=== PATIENT | male | born 1955 | race Caucasian/White ===

== ENCOUNTER 2018-10-28 08:39 | Day surgery (SDC) | payer OTHER ==
[~2018-10-28 08:39] MED LIST: ACET325 PO; ACETAMINOPHEN500 MG PO; ALBU90OI; ALBU90OI INH; ALEVE220 MG PO; ASPI81CH PO; Ambien10 MG PO; BELSOMRA15 MG PO; BUPR100 PO; Benztropine Mesy1 MG; CIPR500 PO; CITA20 PO; CLON.5; CLON1 PO; CLON2 PO; CYCL10; DIVA500EC; DIVA500ER; DOCU100 PO; ESCI10; ESCI20; ESCI20 PO; EYE; FURO40; FURO40 PO; GABA100 PO; GABA300 PO; GABA400 PO; GEMF600; GEMF600 PO; HARVONI 90-4001 EACH; HYDACE10B; HYDACE10B PO; Istalol2.5 ML; Istalol2.5 ML XX; LAMO100 PO; LEVCAR2510 PO; LISI5 PO; LORA.5 PO; LOVA20; LOVA40 PO; Lexapro 2020 MG PO; Loxapine25 MG; NAPR220; NAPR500; OLAN10; OLAN10 PO; OLAN20 MM; OLAN20 PO; OMEP20ER; OPTLUBOPOB BOTHEYES; POTCHL20ER; POTCHL20ER PO; PRAM.5 PO; Percocet 5-3251 EACH PO; Prilosec Otc20 MG PO; QUET25 PO; ROXICODONE5 MG PO; TIMO.5OPS; TIMO.5OPSO BOTHEYES; TIMO.5OPSO OU; TRAV.004OP BOTHEYES; TRAZ50; TRAZ50 PO; TRICOR; TYLENOL PO; Travatan Z5 ML BOTHEYES; Travatan Z5 ML OP; Ultram50 MG PO; VARE1 PO; ZIPR20 PO; ZOLP10 PO; ZOLP5 PO; Zyprexa10 MG PO
== END 2018-10-28 11:10 | disposition home or self-care (01) ==
LOC: ORSCSDS 08:39
PROVIDERS: Internal Medicine Gastroenterology
PROC: 0DB98ZX Excision of Duodenum, Via Natural or Artificial Opening Endoscopic, Diagnostic (ICD-10-PCS; principal; 2018-10-28 10:00)
DX: K74.60 Unspecified cirrhosis of liver (principal); K29.80 Duodenitis without bleeding; K44.9 Diaphragmatic hernia without obstruction or gangrene; F31.9 Bipolar disorder, unspecified; K20.9 Esophagitis, unspecified; B19.20 Unspecified viral hepatitis C without hepatic coma; E11.9 Type 2 diabetes mellitus without complications; I10 Essential (primary) hypertension; E78.5 Hyperlipidemia, unspecified; J44.9 Chronic obstructive pulmonary disease, unspecified; F41.9 Anxiety disorder, unspecified; G47.30 Sleep apnea, unspecified; G47.33 Obstructive sleep apnea (adult) (pediatric); Z87.891 Personal history of nicotine dependence
CPT/HCPCS: 82947; 88305; J2250; J7120

== ENCOUNTER → 2019-11-29 | Outpatient (CLI) | payer OTHER ==
[2019-12-01 15:16] LABS: Adenovirus F 40/41 Not Detected (NOT DETECT); Astrovirus Not Detected (NOT DETECT); Campylobacter Sp Not Detected (NOT DETECT); Cryptosporidium Not Detected (NOT DETECT); Cyclospora Cayetanensis Not Detected (NOT DETECT); E. Coli O157 Not Detected (NOT DETECT); Entamoeba Histolytica Not Detected (NOT DETECT); Enteroaggregative E. coli-EAEC Not Detected (NOT DETECT); Enteropathogenic E. coli-EPEC Not Detected (NOT DETECT); Enterotoxigenic E. coli-ETEC Not Detected (NOT DETECT); Giardia Lamblia Not Detected (NOT DETECT); Norovirus GI/GII Not Detected (NOT DETECT); Plesiomonas Shigelloides Not Detected (NOT DETECT); Rotavirus A Not Detected (NOT DETECT); Salmonella Sp Not Detected (NOT DETECT); Sapovirus Not Detected (NOT DETECT); Shiga Toxin-prod E. coli-STEC Not Detected (NOT DETECT); Shigella/Enteroin E. coli-EIEC Not Detected (NOT DETECT); Vibrio Cholerae Not Detected (NOT DETECT); Vibrio Sp Not Detected (NOT DETECT); Yersinia Enterocolitica Not Detected (NOT DETECT)
== END | disposition home or self-care (01) ==
LOC: LAB SHORT 16:15 → LAB 16:15
PROVIDERS: Physician Assistant
DX: R19.7 Diarrhea, unspecified (principal)
CPT/HCPCS: 0097U

== ENCOUNTER 2020-03-05 10:01 | Observation (INO) | payer OTHER ==
[~2020-03-05] VITALS: Ht 167.6 cm; Wt 95.2 kg
[~2020-03-05 10:01] MED LIST changes: +ASPI325EC PO; -ASPI81CH PO
[2020-03-05 12:06] LABS: BASOPHILS ABSOLUTE AUTO 0.08 K/mm3 (0.00-0.23); BASOPHILS PERCENT AUTO 1 % (0-2); EOSINOPHILS ABSOLUTE AUTO 0.27 K/mm3 (0.00-0.68); EOSINOPHILS PERCENT AUTO 2 % (0-6); Hematocrit 47.9 % (37.0-53.0); Hemoglobin 16.3 g/dL (13.5-17.5); IMMATURE GRAN ABSOLUTE AUTO 0.05 K/mm3 (0.00-0.10); IMMATURE GRAN PERCENT AUTO 0 % (0-1); LYMPHOCYTES ABSOLUTE AUTO 2.44 K/mm3 (0.84-5.20); LYMPHOCYTES PERCENT AUTO 20 % (21-46); MONOCYTES ABSOLUTE AUTO 0.63 K/mm3 (0.16-1.47); MONOCYTES PERCENT AUTO 5 % (4-13); Mean Corpuscular HGB 30.4 pg (26.0-34.0); Mean Corpuscular Volume 89 fL (80-100); Mean Platelet Volume 11.2 fL (9.1-12.4); NEUTROPHILS ABSOLUTE AUTO 8.79 K/mm3 (1.96-9.15); NEUTROPHILS PERCENT AUTO 72 % (41-73); Platelet Count 194 K/mm3 (150-400); RDW Coefficient Variation 13.1 % (11.7-14.2); RDW Standard Deviation 42.4 fL (35.1-46.3); Red Blood Cell Count 5.37 M/mm3 (4.30-5.90); White Blood Cell Count 12.26 K/mm3 (4.00-11.30)
[2020-03-05 12:27] LABS: Alanine Aminotransfer (ALT/SGP 43 U/L (12-78); Albumin, Blood 4.7 g/dL (3.4-5.0); Albumin/Globulin Ratio 1.5 (0.8-1.8); Alk Phos 70 U/L (50-136); Anion Gap 10 mmol/L (6-16); Aspartate Aminotrans (AST/SGOT 33 U/L (12-37); Bilirubin, Total 1.3 mg/dL (0.1-1.0); Blood Urea Nitrogen 11 mg/dL (8-24); Bun/Creatinine Ratio 10.4 (12.0-20.0); CO2, Blood 23 mmol/L (21-32); CPK Creatine Kinase 209 U/L (39-308); Calcium, Blood 9.6 mg/dL (8.5-10.1); Chloride, Blood 104 mmol/L (98-108); Creatine Kinase MB 4.7 ng/mL (0.0-3.6); Creatine Kinase MB Index 2.2 (0.0-4.0); Creatinine, Blood 1.06 mg/dL (0.60-1.20); Globulin, Blood 3.2 g/dL (2.2-4.0); Glomerular Filtration Rate >60 (60-); Glucose, Blood 87 mg/dL (70-99); Potassium, Blood 4.2 mmol/L (3.5-5.5); Sodium, Blood 137 mmol/L (136-145); Total Protein, Blood 7.9 g/dL (6.4-8.2)
[2020-03-05] MEDS ORDERED: Glucophage1000 MG PO (13:27)
[2020-03-05] MEDS ORDERED: TRAZ100 PO (13:27)
[2020-03-05] MEDS ORDERED: LISI5 PO (13:27)
[2020-03-05] MEDS ORDERED: OMEP20ER PO (13:28)
[2020-03-05] MEDS ORDERED: BUPROPION XL150 M1 PO (13:28)
[2020-03-05] MEDS ORDERED: Loratadine10 MG PO (13:28)
--- NOTE | 2020-03-05 18:38 | NUR ---
LEFT MESSAGE ON 'S VOICE MAIL THAT PATIENT CHANGED TO MODERATE RISKAS SCORED HIGHER ON SI ASSESSMENT. TALKED TO JOSE , WHO IS COVERING FOR [employer], AND LET HIM KNOW ALSO.
--- NOTE | 2020-03-05 19:10 | NUR ---
ARRIVES ABOUT 1730. ALERT. ORIENTED. ROOM CLEARED OF ALL HARMFUL ITEMS. TALKED TO WHO WILL BE IN TOMORROW TO SEE. UNLABORED RESPIRATIONS. STS WILL NOT HURT HIMSELF AT THIS TIME. REPORT TO NIGHT RN
--- NOTE | 2020-03-05 21:40 | NUR ---
alert forgetful PT admitted prior to dinner with suicide ideation continues on remote camera monitoring verified with [employer] monitor who verifies PT has been busy in room but coopertive. PT says he has short term memory deficit since . CO rt arm pain relieved by one 5/325 mg tab norco. Appetite good room air voids and ambulates with steady gait. PT says last suicide ideation was 4 years ago. Ex [employer], divoerced with 3 adult children, 3 Grandchildren. Edentulous, ate 100% mech soft diet with ground meat. Says he had planned to hang himself in the [place] but denies active plan to harm self here. Lives alone outside [place] has neighbor Caregiver Charlotte who he shared plan with. Moderate risk for self harm. Continue with plan and close monitoring.
[2020-03-05] MEDS ORDERED: Kenalog-40 m40 MG/ML IJ (22:52)
--- NOTE | 2020-03-06 04:54 | NUR ---
DR Hayden updated on PT's reported severe dystonic reaction with benadryl use and med was dc without ever being given. PT awake most of night. Cooperative, alert but has reported lifelong short term memory deficit. No attempts at self harm, PT continues on moderate sucide precautions with remote camera monitoring. Good appetite. States chronic diarrhea. Foul smelling BM x 1 using bedside commode. PT has restless limb disorder and he sates reaction or no good effect from attempts to treat in past. PT states he used to smoke 9 packs of cigarettes daily quit 4.5 years ago. PT has caregiver Charlotte 5 days a week 3.5 hours daily. He is able to ambulate safely in room. states he has adequate resources from Medicare & medicaid for medical just recently establishing care with new [facility] provider in [place]. Medical record indicates PT had kenalog injection for pain PT has no memory or it. Mild anxiety related to insommnia & restless limb. PT notified exwife he is hospitalized she asked him to get help. Psych eval pending PT spent 6 months in mental institute for severe depression in remote past. 1 attempt with pills to commit suicide 30 years ago, 4 years ago tried to hang self. Asking for help with medical issues, denies attempting to harm self in last 4 years but had planned to hang self with belt on Wednesday.
[2020-03-06 04:56] LABS: BASOPHILS ABSOLUTE AUTO 0.09 K/mm3 (0.00-0.23); BASOPHILS PERCENT AUTO 1 % (0-2); EOSINOPHILS ABSOLUTE AUTO 0.74 K/mm3 (0.00-0.68); EOSINOPHILS PERCENT AUTO 6 % (0-6); Hematocrit 46.5 % (37.0-53.0); Hemoglobin 15.3 g/dL (13.5-17.5); IMMATURE GRAN ABSOLUTE AUTO 0.07 K/mm3 (0.00-0.10); IMMATURE GRAN PERCENT AUTO 1 % (0-1); LYMPHOCYTES PERCENT AUTO 24 % (21-46); MONOCYTES ABSOLUTE AUTO 0.88 K/mm3 (0.16-1.47); MONOCYTES PERCENT AUTO 7 % (4-13); Mean Corpuscular HGB 29.4 pg (26.0-34.0); Mean Corpuscular HGB Conc 32.9 g/dL (31.5-36.5); Mean Corpuscular Volume 89 fL (80-100); Mean Platelet Volume 11.3 fL (9.1-12.4); NEUTROPHILS ABSOLUTE AUTO 7.82 K/mm3 (1.96-9.15); NEUTROPHILS PERCENT AUTO 62 % (41-73); Platelet Count 201 K/mm3 (150-400); RDW Coefficient Variation 12.8 % (11.7-14.2); RDW Standard Deviation 42.1 fL (35.1-46.3)
[2020-03-06 05:25] LABS: Anion Gap 8 mmol/L (6-16); Blood Urea Nitrogen 17 mg/dL (8-24); Bun/Creatinine Ratio 15.3 (12.0-20.0); CO2, Blood 26 mmol/L (21-32); Calcium, Blood 9.5 mg/dL (8.5-10.1); Chloride, Blood 101 mmol/L (98-108); Creatinine, Blood 1.11 mg/dL (0.60-1.20); Glomerular Filtration Rate >60 (60-); Glucose, Blood 94 mg/dL (70-99); Potassium, Blood 4.3 mmol/L (3.5-5.5); Sodium, Blood 135 mmol/L (136-145)
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
--- NOTE | 2020-03-06 17:08 | NUR ---
PT IS A/OX3, HAS BEEN MOSTLY COOPERATIVE TODAY, THIS AM THE PT STATED THAT IF HE WAS DISCHARGED HE WOULD DEFINATLEY GO HOME AND KILL HIMSELF, HE REPORTED THAT HE HED A PLAN AND WENT INTO DETAILS ON DIFFERENT PLANS THAT HE HAD AND APPARENTLY HAD TRIED IN THE PAST, HE STATED THAT IF HE COULD NOT GET THE JERKY MOVEMENTS HE IS HAVING STOPPED THEN HE MIGHT WELL NOT LIVE ANYMORE, THE PT TODAY DEMONSTRATED SOME VERY ODD BEHAVIORS AT TIMES, SUCH STUFFING KLENEX INTO HIS EARS, ASKING THAT PEOPLE WHISPER WHEN COMING INTO HIS ROOM, SAYING THAT HE NEEDED TO PUT SOME EYEDROPS IN HIS EYES BEFORE THEY POPPED OUT OF HIS HEAD DUE TO HIS DRY ITCHY EYES AND PRESSURE IN THE BACK OF HIS NECK AND EARS, HE DEMANDED AND BECAME VERY ANGRY THIS AFTERNOON WANTING SOMETHING TO TAKE NOTES WITH BECAUSE HIS MEMORY WAS SHORT TERM, DR. VARMA AGREED TO LET THE PT HAVE HIS PHONE BACK REQUESTED SO THAT HE COULD TAKE NOTES ON THAT, THEN HE HACKED AND COUGHED LOUDLY IN HIS DOORWAY SAYING THAT A PILL WAS STUCK IN HIS THROAT APPLESAUCE AND THEN CRACKERS WERE GIVEN TO HIM HE DEMANDED SHOVEING THEM INTO HIS MOUTH, THE PT WAS ALSO SEEN ON THE CAMERA DISPLAYING SOME ODD BEHAVIORS, PT APPEARS TO BE BREATHING EASILY ON RA, CALL LIGHT IN REACH, WILL CONTINUE TO MONITOR AND ASSESS FOR CHANGES
--- NOTE | 2020-03-07 02:58 | NUR ---
PT had psych eval and saw other MD. Hopeful he can achieve rest & stop myoclonis activity with MD & Psych help. reviewed safety plan & veriified remote camera monitoring with [employer]. Denies current plan cooperative
[2020-03-07 06:05] LABS: Anion Gap 5 mmol/L (6-16); CO2, Blood 30 mmol/L (21-32); Calcium, Blood 9.3 mg/dL (8.5-10.1); Chloride, Blood 102 mmol/L (98-108); Creatinine, Blood 1.04 mg/dL (0.60-1.20); Glomerular Filtration Rate >60 (60-); Potassium, Blood 4.1 mmol/L (3.5-5.5); Sodium, Blood 137 mmol/L (136-145)
[2020-03-07 06:15] LABS: Blood Urea Nitrogen 16 mg/dL (8-24); Bun/Creatinine Ratio 15.4 (12.0-20.0); Glucose, Blood 86 mg/dL (70-99)
--- NOTE | 2020-03-07 06:30 | NUR ---
64 year old White Male admitted with Suicidal ideation continued to be cooperative without attempts to self harm. PT had remote camera monitoringwith no calls of abnormal behavior. PT is disabled & has caregiver 3.5 hours daily 5 days week. Reports good support & finacial resources to cope. He seems hopeful he will be able to get better control of his restless limbs & insommnia. He was started on requip & he took HS meds and rested for about a hour then complained of lip smacking dry moith. Liquids & observation as well as support were helpful to relieve. He had minimal to no restless limbs for multiple hours during night and slept in bedside recliner with no further requests for pain meds after oxycodone 5 mg given x 1 at HS.
--- NOTE | 2020-03-07 09:25 | NUR ---
SI PT THIS AM STATES THAT HE FEELS SAFE HERE AT THE HOSPITAL, HOWEVER IF HE WAS RELEASED HE FEELS THAT HE MIGHT CONTINUE WITH HIS PLAN TO KILL HIMSELF AT THIS TIME
--- NOTE | 2020-03-07 17:06 | NUR ---
PT IS A/OX3, COOPERATIVE, THE PT IS UP IND IN HIS ROOM , TODAY THE PT REPORTED THAT HE FELT SAFE WHILE HERE IN THE HOSPITAL AND HAD NO PLAN TO HURT HIMSELF LONG HE WAS HERE, THE PT DID HOWEVER, SAY THAT HE WOULD HURT HIMESELF IF HIS PROBLEM WAS NOT SOLVED BEFORE DC, BECAUSE HE COULD NO LONGER LIVE WITH HIS MOTION DISORDER, THE PTS BEHAVIOR TODAY WAS MORE APPROPRIATE COMPARED TO YESTERDAY, AND THE PT DID REPORT THAT HE FELT THE MEDICATION CHANGE WAS WORKING A LITTLE, PT APPEARS TO BE BREATHING EASILY ON RA, CALL LIGHT IN REACH, WILL CONTINUE TO MONITOR AND ASSESS FOR CHANGES
--- NOTE | 2020-03-07 21:47 | NUR ---
SUICIDE PRECAUTIONS MODERATE TO HIGH AT THE TIME OF MY SUICIDE REASSESSMENT PT REPORTS SUICIDE IDEATION AND ANSWERED YES TO MOST QUESTIONS ON SCREENING, FLAGGING HIM FROM MODERATE TO HIGH. EXTRACTOR PLANT OPERATOR VERONICA GOLD NOTIFIED. LORAINE COHEN NP ALSO NOTIFIED. PT NOW HIGH RISK WITH 1:1 SITTER. ROOM IS FREE AND CLEAR OF HARMFUL OBJECTS.
--- NOTE | 2020-03-08 04:42 | NUR ---
SHIFT SUMMARY PT REPORTS SI THIS SHIFT, PT STATES THAT HE HAS AN ACTIVE PLAN. POSITIVE SCREEN WHICH MARKED PT FROM MODERATE TO HIGH. PROVIDER WAS NOTIFIED AND APPROPRIATE MEASURES WERE PUT IN PLACE. PT HAS A 1:1 SITTER AND ROOM HAS BEEN KEPT FREE FROM HARM. PT HAS RESTED OFF AND ON THIS SHIFT. PT CONTINUES TO HAVE MYCLONUS T/O THE NIGHT. SEEMS TO INTENSIFY WHEN PT BECOMES ANXIOUS. PT HAS FLIGHT OF IDEAS WITH PRESSURED SPEECH. PT MEDICATED FOR INTERMITTENT BACK PAIN WITH ROXICODONE WITH EFFECT. INTERMITTENT EPISODE OF NAUSEA THIS SHIFT PO ZOFRAN GIVEN. NO OTHER CHANGES TO REPORT. BED IN LOWEST POSITION, CALL LIGHT WITHIN REACH. WILL CONTINUE TO MONITOR AND REPORT TO ONCOMING RN.
--- NOTE | 2020-03-08 08:33 | NUR ---
STATES HE HAS SAME PLAN FOR YEARS
--- NOTE | 2020-03-08 10:04 | NUR ---
cn spoke to dr frazier, pt has stated that he has a plan but that it is not for here in the hospital, both stated options require him traveling some distance to implement, when left alone with observer very few observable ticks, started twitching as soon as cn entered room
--- NOTE | 2020-03-08 16:42 | NUR ---
level of suicide ideation reduced to moderate, pt states he does not plan on committing suicide while in the hospital, sitter allowed to return to monitor rm, pt missing them, dr in to visit both [facility] and [facility], medications modified and tests ordered in attempt to provide appropriate care for pt, will continue to monitor and treat until share bsr with staff and pt
[2020-03-08 17:42] LABS: Percent Saturation 12.9 % (20.0-50.0)
--- NOTE | 2020-03-08 19:43 | NUR ---
VERIFIED VIDEO MONITORING CALLED SCU HAND BOX COVERER. VERIFIED VIDEO MONITORING IS IN PLACE FOR THIS PT
--- NOTE | 2020-03-08 21:33 | NUR ---
PT STATUS HE SAYS HE NO LONGER FEELS SUICIDAL BECAUSE HE IS GETTING THE HELP HE NEEDS. HE SAYS THAT HE WILL COMMIT SUICIDE IF HIS MUSCLE SPASMS RETURN. HE STATES HE HAS 2 PLANS TO COMMIT SUICIDE AT ALL TIMES THOUGH.
--- NOTE | 2020-03-09 04:25 | NUR ---
SHIFT SUMMARY ADMITTED FOR SI. FULL CODE. HE IS BIPOLAR. HE STATES HE HAS RESTLESS LEGS AND ITS MORE THAN HE CAN BEAR. HE STATES IF THE SYMPTOMS RETURN AFTER HE GOES HOME, HE WILL COMMIT SUICIDE. HE STATES HE HAS TWO PLANS TO DO THIS. HE IS NOT CONSIDERING THIS NOW HE SAYS HIS LEGS HAVE IMPROVED. HE WAS CHANGED FROM A HIGH RISK TO A MODERATE RISK ON A PREVIOUS SHIFT. THE HIGH RISK INTERVENTION STILL NEEDS DC'D - I WILL INFORM DAY NURSE. VIDEO MONITORING IS IN PLACE. [facility] SOFT DIET, RA, INDEPENDENT IN ROOM. WHEN HE DC'S, HE MAY NEED OUTPT NEUROLOGY AND PSYCH REFERALS. HE WAS COOPERATIVE WITH CARE THIS SHIFT
--- NOTE | 2020-03-09 08:22 | NUR ---
SINCE THE SPAZAMS ARE IN CONTROL DOES NOT WANT TO KILL SELF
--- NOTE | 2020-03-09 14:51 | NUR ---
PATIENT ON THE PHONE WITH A FAMILY MEMBER. HE IS NOTED TO BE EMOTIONAL AND IN A BACK AND FORTH CONVERSATION ABOUT HOW HIS CARE IS WELL HERE AND HOW SOMEONE IS UNDERMINING HIS TREATMENT PLAN AND HAT HE HAD JUST GOTTEN BETTER. HE DOES STATE HE DOES NOT FEEL LIKE HE CAN GO HOME SAFELY AT THIS POINT, AND THE NURSES ARE HELPING ALTHOUGH HE DOES FEEL TRAPPED. PATIENT DOES GET MILDLY IRRITABLE BUT IS CALMING DOWN.
--- NOTE | 2020-03-09 16:58 | NUR ---
called nurse in to express concern that the medication/treatment plan he had agreed to would not work, nurse spent some time calming him down, reiterating what the dr had said during her conversation with the pt explaining the medication regiment she thought would be best for him, finally pt agreed that things were still improving and that the dr was responding to his requests and concerns, informed dr of conversation and she allowed for a one time dose of valium, pt has been working on word puzzles eversince to take his mind off the pain in his wrist
--- NOTE | 2020-03-09 18:20 | NUR ---
still concerned that medication will not work, but states he is a zero risk for suicide, very emotional, medicated as prescribed by dr to reduce anxiety, pt resting quietly in room working on puzzles no more pacing ruelas, will continue to monitor and treat until share bsr with noc nurse and pt
--- NOTE | 2020-03-09 19:17 | NUR ---
VERIFIED VIDEO MONITORING CALLED VIDEO TEASEL GIG OPERATOR NARINDER TO VERIFY VIDEO MONITORING IS IN PLACE.
--- NOTE | 2020-03-10 04:12 | NUR ---
SHIFT SUMMARY ADMITTED FOR SI. FULL CODE. MEDICATION REGIMEN CHANGED TODAY IN HOPES OF EFFECTIVE, BUT SAFE, MANAGEMENT OF THIS PT'S SYMPTOMS. VIDEO MONITORING IS IN PLACE. HE DENIES SI WHILE HOSPITALIZED, BUT REMINDS ME THAT HE WILL NOT TOLERATE THE RETURN OF HIS SEVERE SYMPTOMS AFTER DC- AND THAT HE MAY BECOME SUICIDAL IF THE SYMPTOMS RETURN. HE DID COME OUT OF HIS ROOM AND WALK IN THE ALEX FOR EXERCIZE WITH MY SUPERVISION, THIS IMPROVED HIS MOOD GREATLY - FOLLOWING WHICH HE RETURNED TO HIS BED TO SLEEP SOUNDLY. RA, INDEPENDENT W/FWW, [facility] SOFT/GRND MEAT DIET. HE LIVES ALONE. HX: BIPOLAR.
--- NOTE | 2020-03-10 13:18 | NUR ---
contacted dr payan/josue, she said she was on her way up and would assess the pt when she got here as long as he could wait, pt agreed to continue waiting
--- NOTE | 2020-03-10 15:08 | NUR ---
SPACED MEDICATIONS SO TOOK ONE ON AN EMPTY STOMACH AND THE NEW MEDICATION AFTER EATING A SANDWICH, WILL MONITOR TO SEE WHAT EFFECTS MEDICATIONS HAVE ON CONDITION, ZERO SUICIDE, ACHES, INFREQUENT SPASAMS, STILL CONCERNED R/GOING HOME AND HAVING LEG ISSUES
--- NOTE | 2020-03-10 18:25 | NUR ---
trying new mediation for pain control, states it appears to be working, needs constent encouragement and reminders of positive things happening, requested hand be wrapped to minimize pain to thumb, states it is working and that it feels better, frequent checks to verify circulation in hand/fingers, will continue to monitor and check until share bsr with noc nurse and pt
--- NOTE | 2020-03-10 20:23 | NUR ---
PT continues on remote camera monitor & moderate suicide precautions. He is alert & verbalized he is hoping to go home when he can sleep & myoclonis is controlled. Calm & cooperative. Camera monitoring verified with
--- NOTE | 2020-03-11 05:24 | NUR ---
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 He had greatly reduced muscle spasms , decreased limb movement. Medicated with tylenol for co posterior headache with helpful effect. Cooperative with moderate suicide precautions & remote camera monitoring. Appetite good VSS. Pt says he wants to go home Wed with caregiver assist after he see's if current rx are controlling restless limb movements & insommnia.
--- NOTE | 2020-03-11 17:50 | NUR ---
SUMMARY PT IS A/O X4. GENERALLY PLEASANT HOWEVER STATES CONTINUING DEPRESSION, HX BIPOLAR D/O. HE IS ON SUICIDE WATCH w [employer] MX THIS AM. ON ASSESSMENT STATE NO SI @ THIS TIME STATE HE HAS NO INTENT WHILE IN HOSP, FEELS SAFE. STATE STRESSORS R/T HOME CAREGIVER NO LONGER ABLE TO HELP HIM. DR FIERRO IN TO SEE HIM THIS AFTERNOON, STATE PT NO LONGER SUICIDAL, D/C SUICIDE PRECAUTIONS, ACCOUNTS PAYABLE BOOKKEEPER NOTIFIED. DR FIERRO STATE OK FOR D/C HOME w CAREGIVER, DR CHOWDHURY WAS GOING TO D/C HIM TODAY HOWEVER PT STATE IF HE IS D/C W/O PROPER ASSISTANCE @ HOME HE WILL ATTEMPT SUICIDE. CARE MANAGERS BECOME INVOLVED w SITUATION, D/C ON HOLD FOR NOW UNTIL THEY CAN ARRANGE TO PT SATISFACTION FOR SAFETY. PT REASSESSED FOR SI, HE REAFFIRMS NO SI WHILE IN HOSP, ACCOUNTS PAYABLE BOOKKEEPER NOTIFIED, SUICIDAL PRECAUTIONS D/C/ORDER. PT HAS BEEN UP AMBULATING IN ALEX, GAIT STEADY. HE STATE CONTINUING ISSUE W R THUMB, REQUESTS GAUZE WRAP FOR STABILITY, DR CHOWDHURY ORDER TO TRY SPLINT HOWEVER PT DECLINED D/T POOR FIT. VSS.
--- NOTE | 2020-03-11 20:02 | NUR ---
Updated admin times for Neurontin 300 mg Q 8 hours as PT recieving valium 5 mg po at HS & he requests not to be woken at 0000 to take rx. Has severe insommnia & he requests HS meds togeather. He has suicide precautions DC as well as remote camera monitor dc. He verbalized he feels unsafe to dc home & asks for assessment for assisted living or appropriate other dc plan versus home alone.
--- NOTE | 2020-03-12 05:53 | NUR ---
PT continues cooperative but he has been DC from suicide precautions by Dr Mcgrath & he cezar AGUILLON said he could go home but he refused to be dc due to feeling unsafe alone with part-time caregiver. PT complaints of continued myoclonus are at time exaggerated but he does say he will not dc home until he feels he can get adequate rest due to extreme insommnia issues & until restless limb disorder is controlled. Continues with hyper low pitched speech often difficult to understand with some flight of ideas voiced. PT used platform walker to ambulate in halls with steady gait. RT thumb splint replaced with helpful effect to decrease pain. Medicated x 1 with tylenol for headach pain. often sleeping soundly snores. Working with PT OT with progress.
--- NOTE | 2020-03-12 17:51 | NUR ---
SUMMARY PT IS A/O X4, AFFECT PLEASANT, HE STATE NO SI @ THIS TIME, PRECATIONS D/C YESTERDAY. STATE MORE HOPEFUL TODAY, STATE DR CHOWDHURY & CARE MANAGERS ASSISTING HIM WITH APPROP FUTURE LIVING ARRANGEMENTS. HE HAS HAD GOOD RELIEF FROM MUSCLE SPAASMS TODAY. HE C/O NECK/UPPER BACK PAIN & H/A, HAVE GIVEN TYLENOL HOWEVER STATES INEFFECTIVE. DR CHOWDHURY ORDER OXYCODONE 5MG BID. HE HAD SHOWER TODAY, HAS AMBULATED IN AELX, GAIT STEADY. VSS.
[2020-03-13 05:23] LABS: BASOPHILS ABSOLUTE AUTO 0.08 K/mm3 (0.00-0.23); BASOPHILS PERCENT AUTO 1 % (0-2); EOSINOPHILS PERCENT AUTO 7 % (0-6); Hematocrit 45.6 % (37.0-53.0); IMMATURE GRAN ABSOLUTE AUTO 0.05 K/mm3 (0.00-0.10); IMMATURE GRAN PERCENT AUTO 1 % (0-1); LYMPHOCYTES ABSOLUTE AUTO 2.85 K/mm3 (0.84-5.20); LYMPHOCYTES PERCENT AUTO 28 % (21-46); MONOCYTES ABSOLUTE AUTO 0.69 K/mm3 (0.16-1.47); MONOCYTES PERCENT AUTO 7 % (4-13); Mean Corpuscular HGB Conc 32.9 g/dL (31.5-36.5); Mean Corpuscular Volume 91 fL (80-100); Mean Platelet Volume 11.7 fL (9.1-12.4); NEUTROPHILS ABSOLUTE AUTO 5.72 K/mm3 (1.96-9.15); NEUTROPHILS PERCENT AUTO 57 % (41-73); Platelet Count 182 K/mm3 (150-400); RDW Coefficient Variation 13.2 % (11.7-14.2); RDW Standard Deviation 44.7 fL (35.1-46.3); White Blood Cell Count 10.09 K/mm3 (4.00-11.30)
[2020-03-13 05:36] LABS: Anion Gap 5 mmol/L (6-16); Blood Urea Nitrogen 22 mg/dL (8-24); CO2, Blood 30 mmol/L (21-32); Calcium, Blood 8.9 mg/dL (8.5-10.1); Chloride, Blood 105 mmol/L (98-108); Creatinine, Blood 1.05 mg/dL (0.60-1.20); Glomerular Filtration Rate >60 (60-); Glucose, Blood 101 mg/dL (70-99); Magnesium, Blood 2.2 mg/dL (1.6-2.4); Potassium, Blood 4.4 mmol/L (3.5-5.5); Sodium, Blood 140 mmol/L (136-145)
[2020-03-13 05:48] LABS: Percent Saturation 21.6 % (20.0-50.0)
--- NOTE | 2020-03-13 06:35 | NUR ---
SHIFT SUMMARY PT IS A 64 Y/O MALE, ADMITTED FOR SI. PT HAS BEEN TAKEN OFF OF SI PRECAUTIONS PER DR FIERRO. HE DENIED ANY SI OR CURRENT PLANS TO COMMIT SUICIDE WHILE IN THE HOSPITAL. PT DID REPORT MUSCLE SPASMS AT BEDTIME, WHICH APPEARED TO BE RELIEVED WITH THE CURRENT MEDICATION REGIMEN. NO COMPLAINTS OF ACUTE PAIN, NAUSEA OR SOB. VITAL SIGNS STABLE. NO OTHER ACUTE CHANGES IN PT CONDITION NOTED. WILL CONTINUE TO MONITOR AND TREAT PER EMAR UNTIL HAND OFF TO DAY SHIFT RN.
--- NOTE | 2020-03-13 08:02 | NUR ---
MORNING ASSESSMENT: PATIENT REPORTS THAT HE WAS ABLE TO SLEEP WELL LAST NIGHT. PATIENT REPORTS FEELING WELL AND THAT HE WOULD BE READY FOR DISCHARGE SOON IF HE CONTINUES TO FEEL LIKE THIS. REPORTS THAT HE CONTINUES TO HAVE CONTINUOUS PAIN IN RIGHT HAND. DENIES ANY SUICIDAL IDEATION. DENIES SUCIDAL IDEATION UPON DISCHARGE LONG HE CONTINUES TO FEEL THIS GOOD.
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
--- NOTE | 2020-03-13 18:45 | NUR ---
END OF SHIFT SUMMARY: PATIENT CONTINUED TO EXPERIENCE PAIN IN THE RIGHT HAND DURING THE DAY. PATIENT REPORTED THAT THE NEW MEDICATIONS AND THE PAIN MEDICATIONS HELP WITH THE RESTLESS LEG AND PAIN IN THE RIGHT HAND. PATIENT REPORTED THAT THIS DECREASE IN PAIN AND DISCOMFORT HAS RESOLVED HIS SUICIDAL IDEATION. PATIENT DENIED ANY THOUGHTS OF SUICIDE OR SELF-HARM AT THIS TIME. DURING THE SHIFT TODAY, PATIENT REPORTED INTENSE ANGER RELATED TO AN ISSUE WITH THIS BANK CARDS AND INABILITY TO ACCESS HIS ACCOUNT. PATIENT ISOLATED HIMSELF AT THE END OF THE ALEX AND REPORTED THAT HE NEEDED ASSISTANCE WITH THIS ANGER (SEE NURSE'S NOTE). PATIENT REPORTED THAT THE ONE TIME DOSE OF ATIVAN HELPED SOMEWHAT AND THAT THE ONE TIME DOSE OF PO VALIUM (ORDERED AFTER DR. FIERRO VISITED WITH THE PATIENT) HELPED HIM COMPLETELY CALM DOWN. PATIENT INDEPENDENT IN THE ROOM. PATIENT HAS A GOOD APPETITE. PATIENT ABLE TO MAKE HIS NEEDS KNOWN.
--- NOTE | 2020-03-14 05:19 | NUR ---
SHIFT SUMMARY A/O, ABLE TO MAKE NEEDS KNOWN. COOPERATIVE WITH CARE. CALLS AND ANSWERS QUESTIONS APPROPRIATELY. CONTINUES TO C/O PAIN/DISCOMFORT TO R HAND/WRIST; MEDICATED PER EMAR. INDEPENDENT IN HALLWAY /c FWW. APPEARED TO REST OFF AND ON OVERNIGHT. PULSE LOW, UNSURE OF ETIOLOGY; NOTHING IN H&P SHOWS SIGNIFICANT HEART HX. NO OTHER ACUTE CHANGES NOTED OVERNIGHT. BED REMAINS IN LOWEST POSITION. CALL LIGHT AND BELONGINGS WITHIN REACH. WCTM. REPORT TO ONCOMING RN.
--- NOTE | 2020-03-14 16:21 | NUR ---
PT HAD THUMB SPIKA PLACED TODAY. HE IS ALERT AND ORIENTED AND ABLE TO EXPRESS ANY NEEDS. HE IS INDEPENDENT IN THE ROOM. NO ACUTE CHANGES TO PT THIS SHIFT. CALL LIGHT WITHIN REACH.
--- NOTE | 2020-03-15 04:43 | NUR ---
PT A/O X4. INDEPENDENT IN ROOM. DENIES PAIN, NAUSEA, SOB. VSS. NO ACUTE CHANGES.
--- NOTE | 2020-03-15 17:16 | NUR ---
PT CONINUES TO COMPLAIN OF NEW PAINS OR DISORDERS . ADULT VLADIMIR CAME TO INTERVIEW . PT REPORTS FEELING DIZZY YET WALKS AROUND THE ALEX LIKE A CHAMP. HE STATES HIS RIGHT THUMB OR HAND HURTS YET USES IT WITH NO COMPLAINTS. PAIN MEDS GIVEN PER EMAR. NO ACUTE CHANGES.
--- NOTE | 2020-03-16 04:23 | NUR ---
SHIFT SUMMARY PT A&O, PLEASANT & COOPERATIVE W/CARE, C/O MUSCLE SPASMS & R HAND PAIN, MEDICATED PER JAN, PT SLEPT T/O NIGHT, PT IS AMBULATING IN HALLWAY INDEP AT THIS TIME, WILL CONT TO MONITOR UNTIL REPORT GIVEN TO DAY RN.
--- NOTE | 2020-03-16 14:01 | NUR ---
Patient was moved to room 328 from 350. Belongings were bagged and brought with patient including his clothes from the dryer. A/Ox3, pleasant with care and able to make needs known. Denies pain. Up in room and ambulatory in hallway with FWW. Patient's cane was also sent with him. Report given to receiving RYAN Esquivel.
--- NOTE | 2020-03-16 16:03 | NUR ---
SHIFT SUMMARY PATIENT TRANFERED OUT OF SCU TO FLOOR THIS AFTERNOON. PATIENT UP INDEPENDENT IN ROOM. PATIENT MEDICATED X1 FOR PAIN. DENIES NAUSEA AND SHORTNESS OF BREATH. PATIENT RESTING IN RECLINER. CALL LIGHT IN REACH. PATIENT DISCHARGE PENDING PLACEMENT.
--- NOTE | 2020-03-17 05:37 | NUR ---
SHIFT SUMMARY ASSUMED CARE OF PT AT 1900. PT IS A/OX4, BUT HAS FLIGHT OF IDEAS AND BECOMES AGGITATED WHEN HE TALKS ABOUT HIS DOCTORS, PT C/O RESTLESS LEG SYNDROME. HEART SOUNDS REGULAR, LUNG SOUNDS CLEAR, DENIES SOB/CP. PT WONDERED THE HALLS AROUND 0200 BUT RETURNED TO HIS ROOM AND HAS BEEN AWAKE ON AND OFF SINCE. NO ACUTE EVENTS DURING THE NIGHT. PT SLEPT ON AND OFF DURING THE NIGHT. CALL LIGHT IN REACH, BED IN LOWEST POSTION, WILL CONTINUE TO MONITOR UNTIL DAYSHIFT NURSE ARRIVES.
--- NOTE | 2020-03-17 16:09 | NUR ---
SHIFT SUMMARY PATIENT MEDICATED X1 FOR PAIN. DENIES NAUSEA AND SHORTNESS OF BREATH. PATIENT'S RIGHT HAND REWRAPPED IN SPINT AND ANA ROSA BANDAGE TODAY. PATIENT WALKING INDEPENDENTLY IN ALEX. PATIENT PLEASANT AND COOPERATIVE WITH CARE. CALL LIGHT IN REACH.
--- NOTE | 2020-03-18 05:17 | NUR ---
SHIFT SUMMARY ASSUMED CARE OF PT AT 1900. PT IS A/OX4, DENIES N/T IN EXTREMITES BUT HAS RESTLESS LEG SYNDROME. HEART SOUNDS REGULAR, LUNG SOUNDS CLEAR, DENIES SOB AT THIS TIME. PT C/O PAIN IN HIS ARM, BACK, AND LEGS, MEDICATED PER EMAR. PT SLEPT MOST OF THIE NIGHT UNTIL HE AWOKE FOR VITALS AND ASKED FOR PAIN MEDS, MEDICATED PER EMAR. NO ACUTE EVENTS DURING THE NIGHT. PT SLEPT MOST OF THE NIGHT. CALL LIGHT IN REACH, BED IN LOWEST POSITION, WILL CONTINUE TO MONITOR UNTIL DAYSHIFT NURSE ARRIVES.
[2020-03-18] MEDS ORDERED: DIAZ5 PO (13:17)
[2020-03-18] MEDS ORDERED: FERSU300 PO (13:18)
[2020-03-18] MEDS ORDERED: MELO7.5 PO (13:18)
[2020-03-18] MEDS ORDERED: Percocet 5-3251 EACH PO (13:20)
[2020-03-18] MEDS ORDERED: PRAM.125 PO (13:21)
--- NOTE | 2020-03-18 16:07 | NUR ---
1524 PT DISCHARGED HOME VIA [facility]. ESCORTED TO ENTRANCE VIA W/C BY ROVERTO. PT GIVEN NEW FWW BY HERNANDO AND HOME MEDS BY THIS RN PRIOR TO D/C. D/C INSTRUCTIONS REVIEWED WITH PT AND COPY PROVIDED, HARD SCRIPTS FOR CONTROLLED SUBSTANCES WITH PT. NO NEW CHANGES OR CONCERNS.
== END 2020-03-18 15:24 | disposition home health service (06) ==
LOC: ER 10:01 → MEDS 10:02 → ENPENDDIS 03-18 11:34 → MEDS 03-18 14:28
PROVIDERS: Emergency Medicine; Family Medicine; Internal Medicine; ADMIT Student in an Organized Health Care Education/Training Program
DX: F31.9 Bipolar disorder, unspecified (principal); G47.00 Insomnia, unspecified; G25.81 Restless legs syndrome; M65.4 Radial styloid tenosynovitis [de Quervain]; G25.71 Drug induced akathisia; Z91.14 Patient's other noncompliance with medication regimen; Z79.899 Other long term (current) drug therapy; Z79.84 Long term (current) use of oral hypoglycemic drugs; Z87.891 Personal history of nicotine dependence; Z88.8 Allergy status to other drugs, medicaments and biological substances
CPT/HCPCS: 36415; 80048; 80053; 82550; 82553; 82728; 82947; 83540; 83550; 83735; 85025; 96372; 97110; 97116; 97162; 97165; 97530; 97535; 99284; A9270; A9270-GY; G0378; J1650

== ENCOUNTER 2020-10-22 06:59 | Day surgery (SDC) | payer OTHER ==
[~2020-10-22] VITALS: Ht 170.2 cm; Wt 110.8 kg
[~2020-10-22 06:59] MED LIST changes: +BUPROPION XL150 M1 PO; +DIAZ5 PO; +FERSU300 PO; +Glucophage1000 MG PO; +Kenalog-40 m40 MG/ML IJ; +Loratadine10 MG PO; +MELO7.5 PO; +OMEP20ER PO; +PRAM.125 PO; +TRAZ100 PO; +Voltaren100 GM TOP
--- NOTE | 2020-10-22 11:09 | NUR ---
10/22/20 1109 Allyn Pittman PT SATURATIONS 89-90% ON ROOM AIR, PLACED ON OXYGEN AT 2L/MIN VIA NC. PAIN MEDS ADMINISTERED PER ORDERS. OXYGEN SATURATION 94-96% ON 2L OXYGEN. VSS. OXYGEN TURNED OFF, PT MAINTAINING OXYGEN SATURATIONS AT 93-95% ON ROOM AIR.
== END 2020-10-22 11:00 | disposition home or self-care (01) ==
LOC: ORSCSDS 06:59
PROVIDERS: Orthopaedic Surgery
PROC: 0LS70ZZ Reposition Right Hand Tendon, Open Approach (ICD-10-PCS; principal; 2020-10-22 08:45)
PROC: 0LX70ZZ Transfer Right Hand Tendon, Open Approach (ICD-10-PCS; principal; 2020-10-22 08:45)
DX: M18.11 Unilateral primary osteoarthritis of first carpometacarpal joint, right hand (principal); I10 Essential (primary) hypertension; E11.9 Type 2 diabetes mellitus without complications; Z79.84 Long term (current) use of oral hypoglycemic drugs; E66.01 Morbid (severe) obesity due to excess calories; Z68.38 Body mass index [BMI] 38.0-38.9, adult; J44.9 Chronic obstructive pulmonary disease, unspecified; Z87.891 Personal history of nicotine dependence; G47.33 Obstructive sleep apnea (adult) (pediatric); Z79.899 Other long term (current) drug therapy
CPT/HCPCS: 82947; A9270-GY; C1713; J0690; J2250; J2795; J3010; J7120

== ENCOUNTER 2023-09-09 06:17 | Emergency (ER) | payer OTHER ==
[~2023-09-09] VITALS: Ht 170.2 cm; Wt 104.3 kg
[2023-09-09 06:35] LABS: BASOPHILS ABSOLUTE AUTO 0.07 K/mm3 (0.00-0.23); BASOPHILS PERCENT AUTO 1 % (0-2); EOSINOPHILS ABSOLUTE AUTO 0.39 K/mm3 (0.00-0.68); EOSINOPHILS PERCENT AUTO 4 % (0-6); Hematocrit 46.7 % (37.0-53.0); Hemoglobin 16.3 g/dL (13.5-17.5); IMMATURE GRAN ABSOLUTE AUTO 0.08 K/mm3 (0.00-0.10); IMMATURE GRAN PERCENT AUTO 1 % (0-1); LYMPHOCYTES ABSOLUTE AUTO 2.98 K/mm3 (0.84-5.20); LYMPHOCYTES PERCENT AUTO 27 % (21-46); MONOCYTES ABSOLUTE AUTO 0.78 K/mm3 (0.16-1.47); MONOCYTES PERCENT AUTO 7 % (4-13); Mean Corpuscular HGB 31.8 pg (26.0-34.0); Mean Corpuscular HGB Conc 34.9 g/dL (31.5-36.5); Mean Corpuscular Volume 91 fL (80-100); Mean Platelet Volume 10.2 fL (9.1-12.4); NEUTROPHILS ABSOLUTE AUTO 6.61 K/mm3 (1.96-9.15); NEUTROPHILS PERCENT AUTO 61 % (41-73); Platelet Count 158 K/mm3 (150-400); RDW Coefficient Variation 12.6 % (11.7-14.2); RDW Standard Deviation 42.2 fL (35.1-46.3); Red Blood Cell Count 5.12 M/mm3 (4.30-5.90); White Blood Cell Count 10.91 K/mm3 (4.00-11.30)
[2023-09-09 07:00] LABS: Alanine Aminotransfer (ALT/SGP 46 U/L (12-78); Albumin, Blood 4.3 g/dL (3.4-5.0); Albumin/Globulin Ratio 1.5 (0.8-1.8); Alk Phos 64 U/L (50-136); Anion Gap 4 mmol/L (6-16); Aspartate Aminotrans (AST/SGOT 23 U/L (12-37); Blood Urea Nitrogen 23 mg/dL (8-24); Bun/Creatinine Ratio 16.4 (12.0-20.0); CO2, Blood 31 mmol/L (21-32); Calcium, Blood 9.4 mg/dL (8.5-10.1); Chloride, Blood 105 mmol/L (98-108); Ethanol (Alcohol), Blood, Med <3 mg/dL; Globulin, Blood 2.9 g/dL (2.2-4.0); Glomerular Filtration Rate 55 (60-); Glucose, Blood 154 mg/dL (70-99); Magnesium, Blood 2.3 mg/dL (1.6-2.4); Potassium, Blood 4.1 mmol/L (3.5-5.5); Sodium, Blood 140 mmol/L (136-145); Total Protein, Blood 7.2 g/dL (6.4-8.2)
[2023-09-09 07:30] LABS: Influenza A, PCR NEGATIVE (NEGATIVE); Influenza B, PCR NEGATIVE (NEGATIVE); Resp Syncytial Virus, PCR NEGATIVE (NEGATIVE); SARS-Cov-2 (COVID-19) PCR, MMC NEGATIVE (NEGATIVE)
[2023-09-09 08:27] LABS: Source, Urine Clean Catch
[2023-09-09 08:42] LABS: Appearance, Urine Clear (Clear); Bilirubin, Urine Neg (Neg); Blood, Urine Neg (Neg); Color, Urine Yellow (P-Yellow); Glucose Qualitative, Urine Neg (Neg); Ketones, Urine Neg (Neg); Leukocyte Esterase, Urine Neg (Neg); Nitrite, Urine Neg (Neg); Protein, Urine Neg (Neg); Urobilinogen, Urine NORM (Normal); pH, Urine 6.5 (5.0-8.0)
[2023-09-09 09:27] VITALS: BP 145/85
== END 2023-09-09 09:29 | disposition home or self-care (01) ==
LOC: ER 06:17
PROVIDERS: Emergency Medicine
DX: R29.898 Other symptoms and signs involving the musculoskeletal system (principal); Z88.8 Allergy status to other drugs, medicaments and biological substances; Z79.899 Other long term (current) drug therapy; Z79.84 Long term (current) use of oral hypoglycemic drugs; E11.9 Type 2 diabetes mellitus without complications; M19.90 Unspecified osteoarthritis, unspecified site; Z87.891 Personal history of nicotine dependence
CPT/HCPCS: 0241U; 71046; 80053; 81003; 83735; 83880; 84484; 85025; 93005; 93010; 99285-25

== ENCOUNTER 2023-09-19 06:18 | Observation (INO) | payer OTHER ==
[~2023-09-19] VITALS: Ht 177.8 cm; Wt 97.8 kg
[2023-09-19 06:52] LABS: Source, Urine Straight Cath
[2023-09-19 07:03] LABS: Alanine Aminotransfer (ALT/SGP 45 U/L (12-78); Albumin, Blood 4.3 g/dL (3.4-5.0); Albumin/Globulin Ratio 1.3 (0.8-1.8); Alk Phos 60 U/L (50-136); Anion Gap 5 mmol/L (6-16); Aspartate Aminotrans (AST/SGOT 24 U/L (12-37); Bilirubin, Total 0.7 mg/dL (0.1-1.0); Blood Urea Nitrogen 23 mg/dL (8-24); Bun/Creatinine Ratio 19.2 (12.0-20.0); CO2, Blood 30 mmol/L (21-32); Calcium, Blood 9.9 mg/dL (8.5-10.1); Chloride, Blood 104 mmol/L (98-108); Ethanol (Alcohol), Blood, Med <3 mg/dL; Globulin, Blood 3.2 g/dL (2.2-4.0); Glomerular Filtration Rate 66 (60-); Glucose, Blood 168 mg/dL (70-99); Potassium, Blood 4.1 mmol/L (3.5-5.5); Sodium, Blood 139 mmol/L (136-145); Total Protein, Blood 7.5 g/dL (6.4-8.2)
[2023-09-19 07:03] LABS: Appearance, Urine Clear (Clear); Bilirubin, Urine Neg (Neg); Blood, Urine Neg (Neg); Glucose Qualitative, Urine Neg (Neg); Ketones, Urine Neg (Neg); Leukocyte Esterase, Urine Neg (Neg); Nitrite, Urine Neg (Neg); Protein, Urine Neg (Neg); Urobilinogen, Urine NORM (Normal)
[2023-09-19 07:10] LABS: Color, Urine Pale Yellow (P-Yellow)
[2023-09-19 07:10] LABS: BASOPHILS ABSOLUTE AUTO 0.08 K/mm3 (0.00-0.23); BASOPHILS PERCENT AUTO 1 % (0-2); EOSINOPHILS ABSOLUTE AUTO 0.34 K/mm3 (0.00-0.68); EOSINOPHILS PERCENT AUTO 4 % (0-6); Hematocrit 49.7 % (37.0-53.0); Hemoglobin 17.2 g/dL (13.5-17.5); IMMATURE GRAN ABSOLUTE AUTO 0.09 K/mm3 (0.00-0.10); IMMATURE GRAN PERCENT AUTO 1 % (0-1); LYMPHOCYTES ABSOLUTE AUTO 2.24 K/mm3 (0.84-5.20); LYMPHOCYTES PERCENT AUTO 26 % (21-46); MONOCYTES ABSOLUTE AUTO 0.71 K/mm3 (0.16-1.47); MONOCYTES PERCENT AUTO 8 % (4-13); Mean Corpuscular HGB 31.9 pg (26.0-34.0); Mean Corpuscular HGB Conc 34.6 g/dL (31.5-36.5); Mean Corpuscular Volume 92 fL (80-100); Mean Platelet Volume 11.4 fL (9.1-12.4); NEUTROPHILS ABSOLUTE AUTO 5.33 K/mm3 (1.96-9.15); NEUTROPHILS PERCENT AUTO 61 % (41-73); Platelet Count 160 K/mm3 (150-400); White Blood Cell Count 8.79 K/mm3 (4.00-11.30)
[2023-09-19 07:15] LABS: U Amphetamine Screen Not Detected; U Barbituate Screen Not Detected; U Benzodiazapine Screen DETECTED; U Buprenorphine Screen Not Detected; U Cannabinoids Screen Not Detected; U Cocaine Screen Not Detected; U Methadone Screen Not Detected; U Methamphetamine Screen Not Detected; U Opiates Screen Not Detected; U Oxycodone Screen Not Detected; U Phencyclidine Screen Not Detected; U Propoxyphene Screen Not Detected
[2023-09-19 07:39] LABS: Influenza A, PCR NEGATIVE (NEGATIVE); Influenza B, PCR NEGATIVE (NEGATIVE); Resp Syncytial Virus, PCR NEGATIVE (NEGATIVE); SARS-Cov-2 (COVID-19) PCR, MMC NEGATIVE (NEGATIVE)
[2023-09-19 11:10] LABS: CHOL/HDL RATIO 3.6; Cholesterol 174 mg/dL (50-200); HDL Cholesterol 49 mg/dL (>39); LDL/HDL RATIO 1.6; Low Density Lipoprotein Chol 78 mg/dL (0-110); Triglycerides 237 mg/dL (30-160); Very Low Density Lipoprot Chol 47 mg/dL (6-32)
[2023-09-19 16:55] VITALS: BP 125/84
--- NOTE | 2023-09-19 19:36 | NUR ---
SHIFT SUMMARY 1225 RECEIVED PT TO RM 324 VIA DELVIS FROM ER. PT ADMITTED FOR AMS AND SLURRED SPEECH. PER REPORT, POSSIBLE STROKE, BUT NO NEW DEFICITS. DREW PLACED IN ER D/T INCONTINENCE WITH FOUL SMELLING, CLOUDY URINE. L EYE DROOP NOTED, BUT PT REPORTING IT D/T EYE SURGERY SEVERAL TIMES ON THAT EYE. PT REPORTS THAT HE IS NOT ABLE TO STAND UP AT HOME ANYMORE, BUT IS NOT NEW. IT HAS BECOME A PROBLEM BECAUSE HE IS UNABLE TO GET UP OFF THE FLOOR. PT HAS BEEN VERY PLEASANT AND CO-OP TO PRESENT. ABLE TO VERIFY HOME MEDICATIONS. REPORTS THAT HE READS THE BOTTLES. PT HAD A TEAM LEAD UP UNTIL 2-3 WEEKS AGO; REPORTING THAT HIS TEAM LEAD WHEN LEAVING THE HOUSE ONE DAY. MECH SOFT DIET ORDERED D/T PT REPORTING NO DENTURES AND NEEDING FOOD CUT INTO VERY SMALL PCS. PT DID WELL WITH FEEDING SELF AND TOLERATING MECH SOFT DIET. NO CHOKING OR COUGHING NOTED. PT DOES NEED ASSISTANCE WITH OPENING DIFFICULT CONTAINERS. DENIED FURTHER NEEDS. CALL LT IN REACH. REPORT GIVEN TO ONCOMING RN.
[2023-09-19 20:21] VITALS: BP 118/78
--- NOTE | 2023-09-20 01:58 | NUR ---
CALL RECIEVED FROM PHYSICS INSTRUCTOR. PATIENTS RHYTHM HAS CONVERTED FROM WONDERING ATRIAL PACE TO A-FLUTTER WITH A RATE OF 96.
--- NOTE | 2023-09-20 02:00 | NUR ---
HOSPITALIST CONTACTED. CALL PLACED TO DR. PABON REGARDING PATIENT CONVERTING FROM WONDERING ATRIAL PACE TO A-FLUTTER WITH RATE OF 96. DR. PABON ORDERED FOR PATIENT TO BE ON A HEPARIN DRIP. DR. PABON TO PUT IN THE ORDERS.
[2023-09-20 02:57] LABS: Anti-Xa UFH, PHA Monitoring <0.10 IU/mL; International Normalized Ratio 1.04; Prothrombin Time Results 10.9 Sec (9.7-11.5)
--- NOTE | 2023-09-20 03:30 | NUR ---
TELE MONITOR CALLED, PATIENT CONVERTED FROM A-FLUTTER TO SINUS RHYTHM WITH PAC'S.
--- NOTE | 2023-09-20 04:28 | NUR ---
SHIFT SUMMARY PATIENT HAS DREW THAT IS PATENT AND DRAINING TO GRAVITY. PATIENT HAS SOME SLURRED SPEECH-BUT ABLE TO UNDERSTAND. PATIENT HAS HEPARIN DRIP RUNNING-SEE EMAR/ORDERES FOR RATE. PATIENT HAS HAD SOME CHANGES TO HIS RHYTHM TONIGHT-SEE PREVIOUS NOTES. PATIENT IS PLEASANT AND COOPERATIVE WITH CARE. NO C/O PAIN, SOB OR CP. BED IS LOCKED IN THE LOWEST POSITION WITH CALL LIGHT IN REACH. NO S/S OF DISTRESS NOTED.
[2023-09-20 04:31] VITALS: BP 146/64
--- NOTE | 2023-09-20 05:32 | NUR ---
0520- REMOTE SENSING PROGRAM MANAGER CALLED AND NOTIFIED THIS RN THAT PATIENT WAS TACHY UP TO 140 NOT SUSTAINING-DROPPING BACK DOWN INTO THE 90'S. PATIENT ALSO CONVERTING BACK AND FORTH FROM A-FLUTTER TO SINUS AND BACK. 0530-HOSPITALIST CONTACTED AND NOTIFIED OF THE ABOVE WATE AND RHYTHM OF THE PATIENT- TO ORDER LOSPRESSOR.
[2023-09-20 07:09] VITALS: BP 121/91
[2023-09-20 07:10] VITALS: BP 121/91
[2023-09-20] MEDS ORDERED: METO25 PO (14:08)
[2023-09-20] MEDS ORDERED: XARELTO20 MG PO (14:10)
[2023-09-20] MEDS ORDERED: BUPROPION XL150 M1 PO (14:55)
[2023-09-20 15:08] VITALS: BP 104/64
--- NOTE | 2023-09-20 16:40 | NUR ---
DISCHARGE A&OX4, COOPERATIVE WITH CARE, SLIGHT SLURRED SPEECH AT BASELINE. PT DENIED ANY CP/PRESSURE, HEADACHE, DIZZINESS, OR SOB. DID NOT COMPLAIN OF ANY PAIN THROUGHOUT SHIFT. DIMINISHED LUNG SOUNDS IN BILATERAL LOWER LOBES. DREW CATHETER REMOVED EARLIER THIS SHIFT. SMALL WOUND ON R HAND CLEANSED AND COVERED WITH DRY DRESSING JUST BEFORE DISCHARGE. DISCHARGE PACKET REVIEWED WITH PATIENT, EDUCATION MATERIALS DISCUSSED. PATIENT DENIED ANY QUESTIONS OR CONCERNS. MEDICAL TRANSPORT PICKED UP PATIENT AT 1635.
== END 2023-09-20 16:37 | disposition home health service (06) ==
LOC: ER 06:18 → MEDS 06:19
PROVIDERS: Emergency Medicine; Internal Medicine; ADMIT Family Medicine
DX: R47.81 Slurred speech (principal); I48.0 Paroxysmal atrial fibrillation; E11.9 Type 2 diabetes mellitus without complications; I10 Essential (primary) hypertension; Z66 Do not resuscitate; Z79.01 Long term (current) use of anticoagulants; Z20.822 Contact with and (suspected) exposure to COVID-19
CPT/HCPCS: 0241U; 36415; 70450; 70551; 80053; 80061; 81003; 82140; 82947; 84443; 85025; 85520; 85610; 85730; 92610; 93005; 93010; 93306; 93880; 96360-59; 96361-59; 96365; 96366; 97110; 97116; 97162; 99285-25; A9270; G0378; J1644; J1815; J7030; P9612